=== PATIENT | female | born 1980 | race Caucasian/White ===

== ENCOUNTER 2017-01-28 19:15 | Emergency (ER) | payer OTHER ==
[~2017-01-28] VITALS: Ht 157.5 cm; Wt 90.3 kg
[~2017-01-28 19:15] MED LIST: ASPI325T PO; ATARAX PO; BACTRIM DS PO; BUSP5TA PO; COLA100C2 OR; DRIS50002 PO; FERR325T OR; GABA-279 PO; HYDR-4274 PO; IBUP800T OR; LEXA1TAB2 PO; MIRA3350 PO; MIRA33504 PO; NALT50TA4 PO; NICO14DI20 TD; NICO21PAT TD; OMEP40CA2 PO; PARO30TA70 PO; PAXI10TA2 PO; PERC5TAB6 PO; PERC5TAB8 OR; PRAZ2CAP PO; RANI150T PO; RANI15TA PO; TRAZ50TA4 PO; VICO5TAB16 PO; VITA200028 PO
[2017-01-28] MEDS ORDERED: LINZ290C PO (19:25)
[2017-01-28 21:42] VITALS: BP 122/72
--- NOTE | 2017-01-29 07:40 | REP ---
Clinical: Acute crush injury. Old trauma. Comparison: 10/24/2016. Technique: AP, lateral, bilateral oblique views of the left ankle. Findings: The the patient is status post open reduction and fixation for medial and lateral malleolar fractures stable compared to 10/24/2016. No new acute ankle fracture identified. Mortise appears intact. AP view cannot exclude injury to the first toe. Impression: Old stable medial and lateral malleolar fractures. No new ankle fracture. Cannot exclude injury to the first toe and correlation is recommended. Signed by Ferny Black MD 01/29/2017 07:32 A
== END 2017-01-28 21:45 | disposition home or self-care (01) ==
LOC: M ED 21:04
DX: S90.02XA Contusion of left ankle, initial encounter (principal); W23.1XXA Caught, crushed, jammed, or pinched between stationary objects, initial encounter; Y92.099 Unspecified place in other non-institutional residence as the place of occurrence of the external cause; Y93.89 Activity, other specified; Y99.9 Unspecified external cause status

== ENCOUNTER → 2017-02-21 | Outpatient (CLI) | payer OTHER ==
[~2017-02-21] MED LIST changes: +LINZ290C PO
[2017-02-21 09:59] LABS: ALBUMIN 3.4 GM/DL (3.2-5.2); ALKALINE PHOSPHATASE 82 U/L (45-117); ALT/SGPT 20 U/L (12-78); AST/SGOT 13 U/L (15-37); BILIRUBIN,DIRECT < 0.1 MG/DL (0.0-0.2); BILIRUBIN,TOTAL 0.2 MG/DL (0.2-1.0); TOTAL PROTEIN 6.8 GM/DL (6.4-8.2)
== END ==
LOC: M LAB 08:54
PROVIDERS: ATTEND Nurse Practitioner Family
DX: F32.89 Other specified depressive episodes (principal)

== ENCOUNTER → 2017-04-02 | Outpatient (CLI) | payer OTHER ==
[2017-04-02 15:11] LABS: ALBUMIN 3.2 GM/DL (3.2-5.2); ALBUMIN/GLOBULIN RATIO 0.94 (1.00-1.93); ALKALINE PHOSPHATASE 65 U/L (45-117); ALT/SGPT 19 U/L (12-78); AST/SGOT 12 U/L (15-37); BILIRUBIN,DIRECT < 0.1 MG/DL (0.0-0.2); BILIRUBIN,TOTAL 0.1 MG/DL (0.2-1.0); TOTAL PROTEIN 6.6 GM/DL (6.4-8.2)
== END ==
LOC: M LAB 13:22
PROVIDERS: ATTEND Nurse Practitioner Family
DX: Z51.81 Encounter for therapeutic drug level monitoring (principal)

== ENCOUNTER 2017-06-04 12:06 | Emergency (ER) | payer OTHER ==
[~2017-06-04] VITALS: Ht 157.5 cm; Wt 89.1 kg
[~2017-06-04 12:06] MED LIST changes: -HYDR-4274 PO; +HYDR50TA70 PO; +PARO30TA3 PO; -PARO30TA70 PO; +PAXI10TA12 PO; -PAXI10TA2 PO; +PERC5TAB12 PO; -PERC5TAB6 PO; +TRAZ50TA11 PO; -TRAZ50TA4 PO
[2017-06-04] MEDS ORDERED: TOPA1TAB PO (12:22)
[2017-06-04] MEDS ORDERED: EFFE150C PO (12:22)
[2017-06-04] MEDS ORDERED: KETOROLAC 30 MG/ML VIAL (J1885) IV ONE (13:30)
[2017-06-04 14:26] LABS: BASO % 0.7 % (0.0-1.0); EOS # 0.1 K/mm3 (0.0-0.50); EOS % 1.8 % (0.0-3.0); LARGE UNSTAINED CELL # 0.1 K/mm3 (0.0-0.4); LARGE UNSTAINED CELL % 1.5 % (0.0-4.0); LYMPH # 2.1 K/mm3 (1.5-4.5); LYMPH % 32.7 % (24.0-44.0); MEAN CORPUSCULAR HGB CONC 34.7 g/dl (32.0-36.5); MEAN CORPUSCULAR VOLUME 95.1 fl (80.0-96.0); MONO # 0.3 K/mm3 (0.0-0.8); MONO % 5.6 % (0.0-5.0); NEUTROPHILS # 3.5 K/mm3 (1.8-7.7); NEUTROPHILS % 57.7 % (36.0-66.0); PLATELET COUNT, AUTOMATED 243 k/mm3 (150-450); RED CELL DISTRIBUTION WIDTH 12.2 % (11.5-14.5)
[2017-06-04 14:27] LABS: ANION GAP 6 MEQ/L (8-16); BLOOD UREA NITROGEN 7 MG/DL (7-18); CALCIUM LEVEL 8.5 MG/DL (8.5-10.1); CARBON DIOXIDE LEVEL 24 MEQ/L (21-32); CHLORIDE LEVEL 105 MEQ/L (98-107); CREATININE FOR GFR 0.93 MG/DL (0.55-1.02); GLOMERULAR FILTRATION RATE > 60.0 (>60); GLUCOSE, FASTING 88 MG/DL (70-105); POTASSIUM SERUM 3.5 MEQ/L (3.5-5.1); SODIUM LEVEL 135 MEQ/L (136-145)
[2017-06-04] MEDS ORDERED: ISOVUE-370 76% 100ML VIAL (Q9967) As Ordered ONE (14:37)
[2017-06-04] MEDS ORDERED: GABAPENTIN 100 MG CAP PO ONE (15:00)
[2017-06-04] MEDS ORDERED: busPIRone 5 MG TAB PO ONE (15:00)
[2017-06-04 15:11] LABS: ERYTHROCYTE SEDIMENTATION RATE 25 mm/hr (0-20)
[2017-06-04] MEDS ORDERED: ACET30TAB PO (15:25)
[2017-06-04] MEDS ORDERED: CLEO300C2 PO (15:25)
--- NOTE | 2017-06-04 15:25 | REP ---
CT RIGHT THIGH AND FEMUR WITH IV CONTRAST: CT right thigh and femur performed with the intravenous administration of 100 mL of Isovue 370. Sagittal and coronal reconstruction images are performed. The right femur demonstrates no fracture or bone lesion. The soft tissues of the right thigh demonstrate mild skin thickening, but no underlying soft tissue mass or fluid collection. Within the visualized portions of the pelvis there is a cyst near the midline measuring approximately 4.5 cm in maximum diameter. IMPRESSION: No significant abnormality of the right femur or thigh soft tissues. No mass or fluid collection. There is a cyst in the pelvis 4.5 cm in maximum diameter. Recommend followup ultrasound in 1 to 2 months. Signed by Edward Galvez MD 06/04/2017 05:26 P
[2017-06-04 15:38] VITALS: BP 123/63
--- NOTE | 2017-06-05 18:48 | ED PDOC ---
Post-Departure Follow-Up radha pimentel faxed formal report of ct lower extrem for fu Trev Powell MD Jun 05, 2017 18:48
== END 2017-06-04 15:51 | disposition home or self-care (01) ==
LOC: M ED 12:06
DX: L03.115 Cellulitis of right lower limb (principal); N94.89 Other specified conditions associated with female genital organs and menstrual cycle; F32.9 Major depressive disorder, single episode, unspecified; F41.9 Anxiety disorder, unspecified; Z87.59 Personal history of other complications of pregnancy, childbirth and the puerperium; Z79.899 Other long term (current) drug therapy
CPT/HCPCS: 73701; 80048; 83605; 85025; 85652; 86140; 87040; 96374; 99283; J1885; Q9967

== ENCOUNTER → 2017-06-29 | Outpatient (CLI) | payer OTHER ==
[~2017-06-29] MED LIST changes: +ACET30TAB PO; +CLEO300C2 PO; +EFFE150C PO; +GABA-283 PO; +IBUP80TA PO; +Naltrexone; +ROBA500T PO; +TOPA1TAB PO
[2017-06-29 09:23] LABS: BASO % 0.8 % (0.0-1.0); EOS # 0.1 K/mm3 (0.0-0.50); EOS % 2.8 % (0.0-3.0); LARGE UNSTAINED CELL # 0.1 K/mm3 (0.0-0.4); LARGE UNSTAINED CELL % 1.9 % (0.0-4.0); LYMPH # 1.5 K/mm3 (1.5-4.5); LYMPH % 30.9 % (24.0-44.0); MEAN CORPUSCULAR HEMOGLOBIN 32.8 pg (27.0-33.0); MEAN CORPUSCULAR HGB CONC 34.9 g/dl (32.0-36.5); MEAN CORPUSCULAR VOLUME 94.1 fl (80.0-96.0); MONO # 0.3 K/mm3 (0.0-0.8); MONO % 6.8 % (0.0-5.0); NEUTROPHILS # 2.8 K/mm3 (1.8-7.7); NEUTROPHILS % 56.8 % (36.0-66.0); PLATELET COUNT, AUTOMATED 278 k/mm3 (150-450); RED CELL DISTRIBUTION WIDTH 12.1 % (11.5-14.5); WHITE BLOOD COUNT 4.8 K/mm3 (4.0-10.0)
[2017-06-29 09:57] LABS: ALBUMIN 3.6 GM/DL (3.2-5.2); ALBUMIN/GLOBULIN RATIO 1.06 (1.00-1.93); ALKALINE PHOSPHATASE 74 U/L (45-117); ALT/SGPT 15 U/L (12-78); ANION GAP 7 MEQ/L (8-16); AST/SGOT 10 U/L (15-37); BILIRUBIN,TOTAL 0.3 MG/DL (0.2-1.0); BLOOD UREA NITROGEN 10 MG/DL (7-18); CALCIUM LEVEL 9.2 MG/DL (8.5-10.1); CARBON DIOXIDE LEVEL 26 MEQ/L (21-32); CHLORIDE LEVEL 110 MEQ/L (98-107); CHOLESTEROL LEVEL 176 MG/DL (<200); CREATININE FOR GFR 1.05 MG/DL (0.55-1.02); GLOMERULAR FILTRATION RATE > 60.0 (>60); GLUCOSE, FASTING 78 MG/DL (70-105); POTASSIUM SERUM 4.2 MEQ/L (3.5-5.1); SODIUM LEVEL 143 MEQ/L (136-145); TRIGLYCERIDES LEVEL 112 MG/DL (<150)
== END ==
LOC: M LAB 08:33
PROVIDERS: ATTEND Nurse Practitioner Adult Health
DX: Z79.899 Other long term (current) drug therapy (principal)

== ENCOUNTER → 2017-07-05 | Outpatient (CLI) | payer OTHER ==
--- NOTE | 2017-07-05 15:44 | REP ---
RIGHT KNEE SERIES: Five views of the right knee are performed. I see no acute fracture or dislocation. I see no joint effusion. On the lateral view there is possible curvilinear defect in one of the femoral condyles, possibly representing an osteochondral defect. No other abnormalities are seen. IMPRESSION: Possible osteochondral defect involving one of the femoral condyles, only seen on the lateral view. This could be further evaluated with MRI. Signed by Edward Galvez MD 07/05/2017 03:51 P
== END ==
LOC: M RAD 15:12
PROVIDERS: ATTEND Nurse Practitioner Adult Health
DX: M25.561 Pain in right knee (principal)

== ENCOUNTER → 2017-07-06 | Outpatient (CLI) | payer OTHER ==
--- NOTE | 2017-07-06 13:50 | REP ---
DUPLEX EXTREMITY VENOUS ULTRASOUND: RIGHT LOWER EXTREMITY. HISTORY: Right thigh and knee pain, question DVT. FINDINGS: The deep veins are anechoic and fully compressible from the groin to the popliteal fossa in the right lower extremity. Color flow imaging is homogeneous. Spectral Doppler interrogation demonstrates intact respiratory variation in flow and normal manual augmentation of flow. There is no evidence of deep vein thrombosis. IMPRESSION: Negative right lower extremity duplex venous ultrasound. No evidence of deep vein thrombosis. Signed by Vincent Sandoval MD 07/06/2017 01:56 P
== END ==
LOC: M RAD 12:11
PROVIDERS: ATTEND Nurse Practitioner Adult Health
DX: M79.604 Pain in right leg (principal)

== ENCOUNTER → 2017-07-11 | Outpatient (REF) | payer OTHER | LOC: M LAB REF 16:10 | PROVIDERS: ATTEND Nurse Practitioner Adult Health | DX: Z00.00 Encounter for general adult medical examination without abnormal findings (principal); F10.21 Alcohol dependence, in remission ==

== ENCOUNTER 2017-07-12 08:39 | Emergency (ER) | payer OTHER ==
[~2017-07-12] VITALS: Ht 157.5 cm; Wt 95.0 kg
[~2017-07-12 08:39] MED LIST changes: -GABA-283 PO; -IBUP80TA PO; -Naltrexone; -ROBA500T PO
[2017-07-12] MEDS ORDERED: Naltrexone (09:00)
[2017-07-12] MEDS ORDERED: GABA-283 PO (09:00)
[2017-07-12] MEDS ORDERED: IBUP80TA PO (09:30)
[2017-07-12] MEDS ORDERED: METHOCARBAMOL 500 MG TAB PO ONE (09:30)
[2017-07-12] MEDS ORDERED: KETOROLAC 60 MG/2 ML VIAL (J1885) IM ONE (09:30)
[2017-07-12] MEDS ORDERED: ROBA500T PO (09:30)
[2017-07-12 09:49] VITALS: BP 126/65
== END 2017-07-12 10:20 | disposition home or self-care (01) ==
LOC: M ED 08:39
DX: G89.18 Other acute postprocedural pain (principal); M79.651 Pain in right thigh; K58.9 Irritable bowel syndrome, unspecified; F41.9 Anxiety disorder, unspecified; Z79.899 Other long term (current) drug therapy
CPT/HCPCS: 96372; 99282; J1885

== ENCOUNTER 2017-07-31 13:30 | Outpatient (RCR) | payer OTHER ==
[~2017-07-31 13:30] MED LIST changes: +GABA-283 PO; +IBUP80TA PO; +Naltrexone; +ROBA500T PO
== END 2017-08-11 | disposition home or self-care (01) ==
LOC: M PT 13:30
PROVIDERS: ATTEND Nurse Practitioner Adult Health
DX: Z51.89 Encounter for other specified aftercare (principal)

== ENCOUNTER 2018-03-06 17:58 | Emergency (ER) | payer OTHER ==
[2018-03-06 19:02] LABS: BASO # 0.1 10^3/uL (0.0-0.2); BASO % 1.1 % (0.0-1.0); EOS # 0.6 10^3/uL (0.0-0.50); EOS % 9.2 % (0.0-3.0); HEMATOCRIT 36.4 % (36.0-47.0); HEMOGLOBIN 12.1 g/dl (12.0-15.5); IMMATURE GRANULOCYTE % 0.2 % (0-3.0); LYMPH # 2.8 10^3/uL (1.5-4.5); LYMPH % 44.1 % (24.0-44.0); MEAN CORPUSCULAR HEMOGLOBIN 29.7 pg (27.0-33.0); MEAN CORPUSCULAR HGB CONC 33.2 g/dl (32.0-36.5); MEAN CORPUSCULAR VOLUME 89.2 fl (80.0-96.0); MONO # 0.6 10^3/uL (0.0-0.8); MONO % 10.1 % (0.0-5.0); NEUTROPHILS # 2.2 10^3/uL (1.8-7.7); NEUTROPHILS % 35.3 % (36.0-66.0); PLATELET COUNT, AUTOMATED 259 10^3/uL (150-450); RED BLOOD COUNT 4.08 10^6/uL (4.00-5.40); RED CELL DISTRIBUTION WIDTH 13.4 % (11.5-14.5); WHITE BLOOD COUNT 6.3 10^3/uL (4.0-10.0)
[2018-03-06 19:03] LABS: VENOUS BASE EXCESS -2.1 (-2.0-2.0); VENOUS HCO3 24.4 MEQ/L (23.0-27.0); VENOUS O2 SATURATION 87.9 % (60.0-80.0); VENOUS PARTIAL PRESSURE CO2 49.1 mmHg (38.0-50.0); VENOUS PH 7.315 UNITS (7.330-7.430); VENOUS STANDARD HCO3 22.6 MEQ/L
[2018-03-06 19:16] LABS: D-DIMER QUANT 500.4 ng/ml (<500)
[2018-03-06 19:25] LABS: ALBUMIN 3.2 GM/DL (3.2-5.2); ALKALINE PHOSPHATASE 76 U/L (45-117); ALT/SGPT 16 U/L (12-78); ANION GAP 3 MEQ/L (8-16); AST/SGOT 16 U/L (7-37); BILIRUBIN,DIRECT < 0.1 MG/DL (0.0-0.2); BILIRUBIN,TOTAL 0.3 MG/DL (0.2-1.0); BLOOD UREA NITROGEN 2 MG/DL (7-18); CALCIUM LEVEL 8.5 MG/DL (8.5-10.1); CARBON DIOXIDE LEVEL 28 MEQ/L (21-32); CHLORIDE LEVEL 111 MEQ/L (98-107); CPK CREATINE PHOSPHOKINASE 158 U/L (26-192); CREATININE FOR GFR 0.82 MG/DL (0.55-1.30); GLOMERULAR FILTRATION RATE > 60.0 (>60); GLUCOSE, FASTING 79 MG/DL (70-100); MB/CK RELATIVE INDEX 1.89 (< OR =4); NT-PRO BNP 59 PG/ML (<125); POTASSIUM SERUM 3.6 MEQ/L (3.5-5.1); SODIUM LEVEL 142 MEQ/L (136-145); TOTAL PROTEIN 7.2 GM/DL (6.4-8.2); TROPONIN I < 0.02 NG/ML (< 0.10)
[2018-03-06 19:37] LABS: APPEARANCE, URINE CLEAR (CLEAR); BACTERIA, URINE AUTO NEGATIVE (NEGATIVE); BILIRUBIN, URINE AUTO NEGATIVE (NEGATIVE); BLOOD, URINE BLOOD NEGATIVE (NEGATIVE); COLOR, URINE STRAW (YELLOW); GLUCOSE, URINE (UA) AUTO NEGATIVE (NEGATIVE); KETONE, URINE AUTO NEGATIVE (NEGATIVE); LEUKOCYTE ESTERASE, URINE AUTO NEGATIVE (NEGATIVE); NITRITE, URINE AUTO NEGATIVE (NEGATIVE); PROTEIN, URINE AUTO NEGATIVE (NEGATIVE); RBC, URINE AUTO 1 /HPF (0-3); SPECIFIC GRAVITY URINE AUTO 1.002 (1.002-1.035); SQUAMOUS EPITHELIAL CELL UR AU 0 /HPF (0-6); UROBILINOGEN, URINE AUTO 0.2 mg/dL (0.0-2.0); WBC, URINE AUTO 0 /HPF (0-3)
[2018-03-06] MEDS: ACETAMINOPHEN TAB 650MG DOSE (2X325MG) PO (19:58)
[2018-03-06 22:51] LABS: CPK CREATINE PHOSPHOKINASE 129 U/L (26-192); TROPONIN I < 0.02 NG/ML (< 0.10)
[2018-03-06 22:52] LABS: CK-MB VALUE MASS 2.2 NG/ML (<3.6)
== END 2018-03-06 23:57 | disposition home or self-care (01) ==
LOC: M ED 17:58
DX: R60.9 Edema, unspecified (principal); R07.89 Other chest pain; G89.29 Other chronic pain; M54.9 Dorsalgia, unspecified; Z86.718 Personal history of other venous thrombosis and embolism; F17.200 Nicotine dependence, unspecified, uncomplicated; F10.21 Alcohol dependence, in remission; F15.21 Other stimulant dependence, in remission; Z79.899 Other long term (current) drug therapy
CPT/HCPCS: 71046

== ENCOUNTER → 2018-04-17 | Outpatient (CLI) | payer OTHER ==
[~2018-04-17] MED LIST changes: -ACET30TAB PO; -ASPI325T PO; -ATARAX PO; -BACTRIM DS PO; -BUSP5TA PO; -CLEO300C2 PO; -COLA100C2 OR; -DRIS50002 PO; -EFFE150C PO; -FERR325T OR; -GABA-279 PO; -GABA-283 PO; +GASTROGRAFIN SOLUTION 30ML (Q9963) As Ordered; -HYDR50TA70 PO; -IBUP800T OR; -IBUP80TA PO; +ISOVUE-370 76% 100ML VIAL (Q9967) As Ordered; -LEXA1TAB2 PO; -LINZ290C PO; -MIRA3350 PO; -MIRA33504 PO; -NALT50TA4 PO; -NICO14DI20 TD; -NICO21PAT TD; -Naltrexone; -OMEP40CA2 PO; -PARO30TA3 PO; -PAXI10TA12 PO; -PERC5TAB12 PO; -PERC5TAB8 OR; -PRAZ2CAP PO; -RANI150T PO; -RANI15TA PO; -ROBA500T PO; -TOPA1TAB PO; -TRAZ50TA11 PO; -VICO5TAB16 PO; -VITA200028 PO
== END ==
LOC: M RAD 12:39
DX: R10.9 Unspecified abdominal pain (principal); R11.0 Nausea; Z90.710 Acquired absence of both cervix and uterus
CPT/HCPCS: Q9963

== ENCOUNTER → 2018-04-25 | Outpatient (CLI) | payer OTHER ==
[2018-04-25 19:03] LABS: BASO # 0.1 10^3/uL (0.0-0.2); BASO % 0.9 % (0.0-1.0); EOS # 0.4 10^3/uL (0.0-0.50); HEMATOCRIT 34.4 % (36.0-47.0); LYMPH # 3.1 10^3/uL (1.5-4.5); LYMPH % 53.6 % (24.0-44.0); MEAN CORPUSCULAR HEMOGLOBIN 29.6 pg (27.0-33.0); MEAN CORPUSCULAR HGB CONC 34.9 g/dl (32.0-36.5); MEAN CORPUSCULAR VOLUME 84.9 fl (80.0-96.0); MONO # 0.7 10^3/uL (0.0-0.8); MONO % 12.2 % (0.0-5.0); NEUTROPHILS # 1.6 10^3/uL (1.8-7.7); NEUTROPHILS % 27.3 % (36.0-66.0); PLATELET COUNT, AUTOMATED 232 10^3/uL (150-450); RED BLOOD COUNT 4.05 10^6/uL (4.00-5.40); RED CELL DISTRIBUTION WIDTH 13.2 % (11.5-14.5); WHITE BLOOD COUNT 5.8 10^3/uL (4.0-10.0)
[2018-04-25 19:33] LABS: ALBUMIN 3.7 GM/DL (3.2-5.2); ALBUMIN/GLOBULIN RATIO 1.32 (1.00-1.93); ALKALINE PHOSPHATASE 66 U/L (45-117); ALT/SGPT 18 U/L (12-78); ANION GAP 7 MEQ/L (8-16); AST/SGOT 19 U/L (7-37); BILIRUBIN,TOTAL 0.2 MG/DL (0.2-1.0); BLOOD UREA NITROGEN 3 MG/DL (7-18); CALCIUM LEVEL 8.4 MG/DL (8.5-10.1); CARBON DIOXIDE LEVEL 29 MEQ/L (21-32); CHLORIDE LEVEL 100 MEQ/L (98-107); CHOLESTEROL LEVEL 178 MG/DL (<200); CREATININE FOR GFR 0.75 MG/DL (0.55-1.30); FOLATE 4.6 NG/ML (>5.4); FREE T4 0.77 NG/DL (0.76-1.46); GLOMERULAR FILTRATION RATE > 60.0 (>60); GLUCOSE, FASTING 70 MG/DL (70-100); HDL CHOLESTEROL 20 MG/DL (>40); NON-HDL-C 158 MG/DL; POTASSIUM SERUM 3.4 MEQ/L (3.5-5.1); SODIUM LEVEL 136 MEQ/L (136-145); TOTAL PROTEIN 6.5 GM/DL (6.4-8.2); TRIGLYCERIDES LEVEL 340 MG/DL (<150); VITAMIN B12 LEVEL 209 PG/ML (247-911)
[2018-04-26 12:21] LABS: HEPATITIS C VIRUS ABY INDEX < 0.0 INDEX (<0.8)
[2018-04-26 12:22] LABS: HIV 1&2 SCREEN CENTAUR NEGATIVE (NEGATIVE)
== END ==
LOC: M LAB 18:16
DX: F32.9 Major depressive disorder, single episode, unspecified (principal); R20.2 Paresthesia of skin; Z11.59 Encounter for screening for other viral diseases; Z11.4 Encounter for screening for human immunodeficiency virus [HIV]; Z13.220 Encounter for screening for lipoid disorders
CPT/HCPCS: 82746

== ENCOUNTER → 2018-04-26 | Outpatient (CLI) | payer OTHER ==
[~2018-04-26] MED LIST changes: -GASTROGRAFIN SOLUTION 30ML (Q9963) As Ordered; -ISOVUE-370 76% 100ML VIAL (Q9967) As Ordered; +PROHANCE 279.3MG/ML 15ML VIAL (A9576) As Ordered; +PROHANCE 279.3MG/ML 5ML VIAL (A9576) As Ordered
== END ==
LOC: M RAD 12:32
DX: R42 Dizziness and giddiness (principal); H53.8 Other visual disturbances; R56.1 Post traumatic seizures
CPT/HCPCS: A9576

== ENCOUNTER → 2018-05-07 | Outpatient (REF) | payer OTHER ==
[2018-05-07 12:08] LABS: INR 1.01; PROTHROMBIN TIME 13.4 SECONDS (12.4-14.5)
[2018-05-07 12:09] LABS: PARTIAL THROMBOPLASTIN TIME 32.1 SECONDS (26.8-37.9)
[2018-05-07 12:15] LABS: ANION GAP 7 MEQ/L (8-16); BLOOD UREA NITROGEN 5 MG/DL (7-18); CALCIUM LEVEL 8.8 MG/DL (8.5-10.1); CARBON DIOXIDE LEVEL 27 MEQ/L (21-32); CHLORIDE LEVEL 111 MEQ/L (98-107); CREATININE FOR GFR 0.88 MG/DL (0.55-1.30); GLOMERULAR FILTRATION RATE > 60.0 (>60); GLUCOSE, FASTING 87 MG/DL (70-100); POTASSIUM SERUM 3.7 MEQ/L (3.5-5.1); SODIUM LEVEL 145 MEQ/L (136-145)
[2018-05-13 14:55] LABS: CARDIOLIPIN IGA ANTIBODY <9 APL U/mL (0-11); CARDIOLIPIN IGG ANTIBODY <9 GPL U/mL (0-14); CARDIOLIPIN IGM ANTIBODY 9 MPL U/mL (0-12); FACTOR V 92 % (70-150); HOMOCYST(E)INE SERUM 15.5 umol/L (0.0-15.0); PROTEIN C FUNCTIONAL ACTIVITY 107 % (73-180); PROTEIN C RESISTANCE ACTIVATED 2.9 ratio (2.2-3.5); PROTEIN S FUNCTIONAL ACTIVITY 89 % (63-140)
[2018-05-13 14:55] LABS: ANTI THROMBIN 3 FUNCT ACTIVITY 111 % (75-135)
== END ==
LOC: M SFHCPLAZ 09:33
DX: Z86.718 Personal history of other venous thrombosis and embolism (principal); E87.6 Hypokalemia
CPT/HCPCS: 86147

== ENCOUNTER → 2018-05-13 | Outpatient (CLI) | payer OTHER | LOC: M RAD 14:30 | DX: M54.5 Low back pain (principal) | CPT/HCPCS: 72110 ==

== ENCOUNTER → 2018-08-05 | Outpatient (REF) | payer OTHER ==
[2018-08-05 12:53] LABS: BASO # 0.1 10^3/uL (0.0-0.2); BASO % 0.8 % (0.0-1.0); EOS # 0.3 10^3/uL (0.0-0.50); EOS % 3.8 % (0.0-3.0); HEMATOCRIT 41.8 % (36.0-47.0); HEMOGLOBIN 14.2 g/dl (12.0-15.5); IMMATURE GRANULOCYTE % 0.3 % (0-3.0); LYMPH % 40.7 % (24.0-44.0); MEAN CORPUSCULAR HEMOGLOBIN 29.5 pg (27.0-33.0); MEAN CORPUSCULAR VOLUME 86.7 fl (80.0-96.0); MONO # 0.7 10^3/uL (0.0-0.8); MONO % 9.7 % (0.0-5.0); NEUTROPHILS # 3.3 10^3/uL (1.8-7.7); NEUTROPHILS % 44.7 % (36.0-66.0); PLATELET COUNT, AUTOMATED 320 10^3/uL (150-450); RED BLOOD COUNT 4.82 10^6/uL (4.00-5.40); RED CELL DISTRIBUTION WIDTH 12.8 % (11.5-14.5); WHITE BLOOD COUNT 7.3 10^3/uL (4.0-10.0)
[2018-08-05 13:34] LABS: ALBUMIN 3.7 GM/DL (3.2-5.2); ALBUMIN/GLOBULIN RATIO 0.93 (1.00-1.93); ALKALINE PHOSPHATASE 90 U/L (45-117); ALT/SGPT 18 U/L (12-78); ANION GAP 10 MEQ/L (8-16); AST/SGOT 14 U/L (7-37); BILIRUBIN,TOTAL 0.4 MG/DL (0.2-1.0); BLOOD UREA NITROGEN 8 MG/DL (7-18); CALCIUM LEVEL 8.9 MG/DL (8.5-10.1); CARBON DIOXIDE LEVEL 26 MEQ/L (21-32); CHLORIDE LEVEL 103 MEQ/L (98-107); CHOLESTEROL LEVEL 225 MG/DL (<200); CHOLESTEROL RISK RATIO 8.653 (<5); CREATININE FOR GFR 0.87 MG/DL (0.55-1.30); GLOMERULAR FILTRATION RATE > 60.0 (>60); GLUCOSE, FASTING 76 MG/DL (70-100); HDL CHOLESTEROL 26 MG/DL (>40); LDL CHOLESTEROL 165 MG/DL (<100); NON-HDL-C 199 MG/DL; POTASSIUM SERUM 4.1 MEQ/L (3.5-5.1); SODIUM LEVEL 139 MEQ/L (136-145); TOTAL PROTEIN 7.7 GM/DL (6.4-8.2); TRIGLYCERIDES LEVEL 169 MG/DL (<150)
[2018-08-05 13:57] LABS: FOLATE > 24.0 NG/ML (>5.4)
== END ==
LOC: M SFHCPLAZ 08:54
DX: E53.8 Deficiency of other specified B group vitamins (principal); E78.5 Hyperlipidemia, unspecified

== ENCOUNTER → 2018-11-21 | Outpatient (REF) | payer OTHER ==
[~2018-11-21] MED LIST changes: +ACET30TAB PO; +ASPI325T PO; +ATARAX PO; +BACTRIM DS PO; +BUSP5TA PO; +CLEO300C2 PO; +COLA100C2 OR; +DRIS50003 PO; +EFFE150C2 PO; +FERR325T OR; +GABA-1171 PO; +GABA-845 PO; +HYDR50TA70 PO; +IBUP-1022 PO; +IBUP800T OR; +IBUP80TA PO; +LEXA1TAB2 PO; +LINZ290C PO; +MIRA3350 PO; +MIRA33504 PO; +NALT50TA4 PO; +NICO14DI20 TD; +NICO21PAT TD; +Naltrexone; +OMEP40CA2 PO; +PARO30TA3 PO; +PAXI10TA12 PO; +PERC5TAB12 PO; +PERC5TAB8 OR; +PRAZ2CAP PO; -PROHANCE 279.3MG/ML 15ML VIAL (A9576) As Ordered; -PROHANCE 279.3MG/ML 5ML VIAL (A9576) As Ordered; +RANI150T PO; +RANI15TA PO; +ROBA500T PO; +TOPA1TAB PO; +TRAZ-160 PO; +VICO5TAB16 PO; +VITA200028 PO
[2018-11-21 18:10] LABS: ALBUMIN 3.4 GM/DL (3.2-5.2); ALT/SGPT 19 U/L (12-78); BILIRUBIN,TOTAL 0.1 MG/DL (0.2-1.0); BLOOD UREA NITROGEN 7 MG/DL (7-18); CALCIUM LEVEL 9.1 MG/DL (8.5-10.1); CARBON DIOXIDE LEVEL 30 MEQ/L (21-32); CHLORIDE LEVEL 104 MEQ/L (98-107); CHOLESTEROL LEVEL 222 MG/DL (<200); CHOLESTEROL RISK RATIO 10.571 (<5); CREATININE FOR GFR 0.81 MG/DL (0.55-1.30); GLOMERULAR FILTRATION RATE > 60.0 (>60); GLUCOSE, FASTING 100 MG/DL (70-100); HDL CHOLESTEROL 21 MG/DL (>40); NON-HDL-C 201 MG/DL; POTASSIUM SERUM 4.3 MEQ/L (3.5-5.1); SODIUM LEVEL 141 MEQ/L (136-145); TOTAL PROTEIN 7.2 GM/DL (6.4-8.2); TRIGLYCERIDES LEVEL 418 MG/DL (<150)
== END ==
LOC: M SFHCPLAZ 15:46
PROVIDERS: ATTEND Physician Assistant
DX: E78.49 Other hyperlipidemia (principal)

== ENCOUNTER → 2019-01-29 | Outpatient (REF) | payer OTHER, MEDICAID ==
[2019-01-29 19:28] LABS: BASO # 0.1 10^3/uL (0.0-0.2); BASO % 0.8 % (0.0-1.0); EOS # 0.3 10^3/uL (0.0-0.50); EOS % 3.6 % (0.0-3.0); HEMATOCRIT 37.2 % (36.0-47.0); HEMOGLOBIN 12.4 g/dl (12.0-15.5); LYMPH # 3.3 10^3/uL (1.5-4.5); LYMPH % 37.9 % (24.0-44.0); MEAN CORPUSCULAR HEMOGLOBIN 28.7 pg (27.0-33.0); MEAN CORPUSCULAR HGB CONC 33.3 g/dl (32.0-36.5); MEAN CORPUSCULAR VOLUME 86.1 fl (80.0-96.0); MONO # 0.8 10^3/uL (0.0-0.8); MONO % 9.5 % (0.0-5.0); NEUTROPHILS # 4.2 10^3/uL (1.8-7.7); PLATELET COUNT, AUTOMATED 348 10^3/uL (150-450); RED BLOOD COUNT 4.32 10^6/uL (4.00-5.40); WHITE BLOOD COUNT 8.8 10^3/uL (4.0-10.0)
[2019-01-29 19:49] LABS: ERYTHROCYTE SEDIMENTATION RATE 45 mm/hr (0-20)
[2019-01-29 19:51] LABS: ALBUMIN 3.5 GM/DL (3.2-5.2); ALT/SGPT 23 U/L (12-78); BILIRUBIN,TOTAL 0.2 MG/DL (0.2-1.0); BLOOD UREA NITROGEN 6 MG/DL (7-18); C REACTIVE PROTEIN QUANTITATIV 0.56 MG/DL (0.00-0.30); CALCIUM LEVEL 8.6 MG/DL (8.5-10.1); CARBON DIOXIDE LEVEL 29 MEQ/L (21-32); CHLORIDE LEVEL 106 MEQ/L (98-107); CREATININE FOR GFR 0.84 MG/DL (0.55-1.30); GLOMERULAR FILTRATION RATE > 60.0 (>60); GLUCOSE, FASTING 75 MG/DL (70-100); POTASSIUM SERUM 3.7 MEQ/L (3.5-5.1); SODIUM LEVEL 140 MEQ/L (136-145); TOTAL PROTEIN 7.1 GM/DL (6.4-8.2)
== END ==
LOC: M LAB REF 18:48
PROVIDERS: ATTEND Family Medicine Addiction Medicine
DX: R22.33 Localized swelling, mass and lump, upper limb, bilateral (principal)

== ENCOUNTER → 2019-03-27 | Outpatient (CLI) | payer OTHER ==
[~2019-03-27] MED LIST changes: +ACET-716 PO; -ACET30TAB PO; +ASPI-1 PO; -ASPI325T PO; -VICO5TAB16 PO; +VICO5TAB17 PO
--- NOTE | 2019-03-28 15:43 | REP ---
Clinical: Pain and disability. Comparison: 05/13/2018 Technique: AP, lateral, coned-down views of the lumbar spine. Findings: Three views of the lumbosacral spine demonstrate satisfactory alignment and lordosis without acute fracture / compression injury or subluxation. Very minimal age-related changes are appreciated. Impression: Mild generalized age-related changes. No acute fracture / compression injury or subluxation. Electronically Signed by Ferny Black MD 03/28/2019 03:35 P
== END ==
LOC: M RAD 10:38
PROVIDERS: ATTEND Family Medicine Addiction Medicine
DX: M54.5 Low back pain (principal)

== ENCOUNTER → 2019-03-27 | Outpatient (CLI) | payer OTHER ==
--- NOTE | 2019-03-28 16:48 | REP ---
Clinical: Rule out venous insufficiency . Technique: Galvez scale and color Doppler evaluation using linear high frequency transducer with reflux evaluation . Findings: Ultrasound examination of the right and left lower extremity deep venous structures from the common femoral vein to the popliteal vein demonstrates normal compressibility flow and wave patterns in response to respiration and augmentation. There is no evidence for deep venous thrombosis. Reflux evaluation demonstrates no reflux through either deep or superficial system bilaterally. Impression: No evidence for deep venous thrombosis. No evidence for reflux. Electronically Signed by Ferny Black MD 03/28/2019 04:40 P
== END ==
LOC: M RAD 10:34
PROVIDERS: ATTEND Surgery Vascular Surgery
DX: R22.43 Localized swelling, mass and lump, lower limb, bilateral (principal)

== ENCOUNTER → 2019-06-27 | Outpatient (REF) | payer OTHER ==
[~2019-06-27] MED LIST changes: -OMEP40CA2 PO; +OMEP40CA97 PO; -TRAZ-160 PO; +TRAZ-252 PO
[2019-06-27 18:36] LABS: BASO # 0.1 10^3/uL (0.0-0.2); BASO % 0.6 % (0.0-1.0); EOS # 0.2 10^3/uL (0.0-0.50); EOS % 1.8 % (0.0-3.0); HEMATOCRIT 40.1 % (36.0-47.0); HEMOGLOBIN 13.1 g/dl (12.0-15.5); LYMPH # 3.1 10^3/uL (1.5-4.5); LYMPH % 27.7 % (24.0-44.0); MEAN CORPUSCULAR HEMOGLOBIN 27.7 pg (27.0-33.0); MEAN CORPUSCULAR HGB CONC 32.7 g/dl (32.0-36.5); MEAN CORPUSCULAR VOLUME 84.8 fl (80.0-96.0); MONO # 0.8 10^3/uL (0.0-0.8); MONO % 7.6 % (0.0-5.0); NEUTROPHILS # 6.8 10^3/uL (1.8-7.7); NEUTROPHILS % 61.9 % (36.0-66.0); PLATELET COUNT, AUTOMATED 375 10^3/uL (150-450); RED BLOOD COUNT 4.73 10^6/uL (4.00-5.40)
[2019-06-27 18:46] LABS: ALBUMIN 3.3 GM/DL (3.2-5.2); ALT/SGPT 20 U/L (12-78); BILIRUBIN,TOTAL 0.2 MG/DL (0.2-1.0); BLOOD UREA NITROGEN 6 MG/DL (7-18); C REACTIVE PROTEIN QUANTITATIV 0.95 MG/DL (0.00-0.30); CARBON DIOXIDE LEVEL 27 MEQ/L (21-32); CHLORIDE LEVEL 105 MEQ/L (98-107); CHOLESTEROL LEVEL 199 MG/DL (<200); CHOLESTEROL RISK RATIO 5.685 (<5); CREATININE FOR GFR 0.82 MG/DL (0.55-1.30); GLOMERULAR FILTRATION RATE > 60.0 (>60); GLUCOSE, FASTING 103 MG/DL (70-100); HDL CHOLESTEROL 35 MG/DL (>40); LDL CHOLESTEROL 140 MG/DL (<100); NON-HDL-C 164 MG/DL; SODIUM LEVEL 138 MEQ/L (136-145); TOTAL PROTEIN 7.4 GM/DL (6.4-8.2); TRIGLYCERIDES LEVEL 118 MG/DL (<150)
[2019-06-27 19:14] LABS: ERYTHROCYTE SEDIMENTATION RATE 33 mm/hr (0-20)
== END ==
LOC: M LAB REF 17:59
PROVIDERS: ATTEND Nurse Practitioner Family
DX: M34.89 Other systemic sclerosis (principal); M54.5 Low back pain

== ENCOUNTER → 2019-07-03 | Outpatient (CLI) | payer OTHER ==
[~2019-07-03] MED LIST changes: +OMEP40CA2 PO; -OMEP40CA97 PO
--- NOTE | 2019-07-03 16:27 | REP ---
HISTORY: Pain bilateral hands. FINDINGS: The joint spaces are symmetric and relatively well maintained. There is no evidence of acute fracture or destructive osseous lesion. IMPRESSION: Negative bilateral hands. Electronically Signed by Nate Hebert DO 07/03/2019 04:30 P
[2019-07-03 20:46] LABS: BASO # 0.1 10^3/uL (0.0-0.2); EOS # 0.3 10^3/uL (0.0-0.50); EOS % 3.1 % (0.0-3.0); HEMATOCRIT 39.4 % (36.0-47.0); HEMOGLOBIN 12.8 g/dl (12.0-15.5); LYMPH # 3.2 10^3/uL (1.5-4.5); MEAN CORPUSCULAR HEMOGLOBIN 28.6 pg (27.0-33.0); MEAN CORPUSCULAR HGB CONC 32.5 g/dl (32.0-36.5); MEAN CORPUSCULAR VOLUME 88.1 fl (80.0-96.0); MONO # 0.6 10^3/uL (0.0-0.8); MONO % 6.6 % (0.0-5.0); NEUTROPHILS # 4.9 10^3/uL (1.8-7.7); PLATELET COUNT, AUTOMATED 324 10^3/uL (150-450); RED BLOOD COUNT 4.47 10^6/uL (4.00-5.40); WHITE BLOOD COUNT 9.1 10^3/uL (4.0-10.0)
[2019-07-03 21:13] LABS: FOLATE 19.3 NG/ML
== END ==
LOC: M ADAMS 14:21
PROVIDERS: ATTEND Nurse Practitioner Family
DX: M25.50 Pain in unspecified joint (principal); R20.2 Paresthesia of skin; Z00.01 Encounter for general adult medical examination with abnormal findings

== ENCOUNTER → 2019-07-03 | Outpatient (REF) | payer OTHER | LOC: M SFHCADAM 14:29 | PROVIDERS: ATTEND Internal Medicine Rheumatology | DX: M25.50 Pain in unspecified joint (principal) ==

== ENCOUNTER → 2020-07-07 | Outpatient (CLI) | payer OTHER ==
[~2020-07-07] MED LIST changes: -OMEP40CA2 PO; +OMEP40CA97 PO
--- NOTE | 2020-08-09 16:24 | REP ---
DIGITAL DIAGNOSTIC BILATERAL MAMMOGRAPHY WITH CAD, 3D TOMOGRAPHY, AND FOCUSED RIGHT BREAST SONOGRAPHY HISTORY: Bilateral breast pain, particularly upper outer quadrant on the right. Pain x4 years. Positive family history of breast carcinoma. COMPARISON: No comparison breast imaging. FINDINGS: Routine views of each breast are augmented by magnified focal spot compression and true medial lateral views of the right breast. Scattered fibroglandular elements are seen. The Volpara density pattern is B. There is a benign intramammary lymph node in the upper outer quadrant on the right. There is an asymmetric density at approximately 11 o'clock on the right seen on the craniocaudad view. Magnified focal spot compression and true mediolateral views demonstrate that this area compresses away to normal stromal elements. No suspicious mammographic abnormality is seen on either side. SONOGRAPHIC FINDINGS: The right upper outer quadrant was scanned sonographically. At 10 o'clock, there is a normal appearing 1.1 cm lymph node. This is felt to correspond with the lymph node seen mammographically and it has a benign appearance. At 11 o'clock, there is a 0.7 cm cyst. At the 12 o'clock position, there is a 0.9 cm simple cyst. No suspicious sonographic abnormality. IMPRESSION: BI-RADS Category 2 benign findings. Clinical follow-up is advised. Repeat screening mammography recommended in one year. BIRADS 2: BI-RADS/ACR category 2 mammogram. Benign findings. This study was interpreted with the aid of an FDA approved computer-assisted detection device. The [facility] lifetime breast cancer risk assessment is 10.3%. Patient letter M2. ZULEIKA
== END ==
LOC: M WHC 14:20
PROVIDERS: ATTEND Nurse Practitioner Family
DX: N60.01 Solitary cyst of right breast (principal); N64.4 Mastodynia
CPT/HCPCS: 76642; 77066; G0279

== ENCOUNTER → 2020-10-27 | Outpatient (REF) | payer OTHER ==
[2020-10-27 17:30] LABS: ALBUMIN 3.3 GM/DL (3.2-5.2); ALT/SGPT 20 U/L (12-78); BILIRUBIN,TOTAL 0.1 MG/DL (0.2-1.0); BLOOD UREA NITROGEN 4 MG/DL (7-18); CALCIUM LEVEL 9.1 MG/DL (8.5-10.1); CARBON DIOXIDE LEVEL 31 MEQ/L (21-32); CHLORIDE LEVEL 107 MEQ/L (98-107); CHOLESTEROL LEVEL 260 MG/DL (<200); CREATININE FOR GFR 0.89 MG/DL (0.55-1.30); GLOMERULAR FILTRATION RATE > 60.0 (>60); GLUCOSE, FASTING 88 MG/DL (70-100); HDL CHOLESTEROL 20 MG/DL (>40); LDL CHOLESTEROL 164 MG/DL (<100); NON-HDL-C 240 MG/DL; POTASSIUM SERUM 3.9 MEQ/L (3.5-5.1); SODIUM LEVEL 140 MEQ/L (136-145); TRIGLYCERIDES LEVEL 378 MG/DL (<150)
== END ==
LOC: M LAB REF 16:16
PROVIDERS: ATTEND Family Medicine Addiction Medicine
DX: E66.9 Obesity, unspecified (principal)

== ENCOUNTER → 2021-02-04 | Outpatient (REF) | payer OTHER ==
[2021-02-04 17:33] LABS: ALBUMIN 3.7 GM/DL (3.2-5.2); ALT/SGPT 20 U/L (12-78); BILIRUBIN,TOTAL 0.2 MG/DL (0.2-1.0); BLOOD UREA NITROGEN 10 MG/DL (7-18); CALCIUM LEVEL 9.1 MG/DL (8.5-10.1); CARBON DIOXIDE LEVEL 27 MEQ/L (21-32); CHLORIDE LEVEL 101 MEQ/L (98-107); CHOLESTEROL LEVEL 261 MG/DL (<200); CHOLESTEROL RISK RATIO 9.321 (<5); CREATININE FOR GFR 0.83 MG/DL (0.55-1.30); GLOMERULAR FILTRATION RATE > 60.0 (>60); GLUCOSE, FASTING 113 MG/DL (70-100); HDL CHOLESTEROL 28 MG/DL (>40); LDL CHOLESTEROL 190 MG/DL (<100); NON-HDL-C 233 MG/DL; POTASSIUM SERUM 4.4 MEQ/L (3.5-5.1); SODIUM LEVEL 136 MEQ/L (136-145); TOTAL 25(OH) VITAMIN D 15.4 NG/ML (30.0-100.0); TOTAL PROTEIN 7.7 GM/DL (6.4-8.2); TRIGLYCERIDES LEVEL 214 MG/DL (<150)
== END ==
LOC: M LAB REF 16:33
PROVIDERS: ATTEND Family Medicine Addiction Medicine
DX: E55.9 Vitamin D deficiency, unspecified (principal); E78.2 Mixed hyperlipidemia

== ENCOUNTER → 2021-02-28 | Outpatient (REF) | payer OTHER | LOC: M LAB REF 16:29 | PROVIDERS: ATTEND Family Medicine Addiction Medicine | DX: M54.5 Low back pain (principal) ==

== ENCOUNTER → 2021-07-19 | Outpatient (REF) | payer OTHER ==
[~2021-07-19] MED LIST changes: +GABA-283 PO; -GABA-845 PO; +OMEP40CA4 PO; -OMEP40CA97 PO
[2021-07-19 17:36] LABS: BASO # 0.1 10^3/uL (0.0-0.2); BASO % 0.7 % (0.0-1.0); EOS # 0.1 10^3/uL (0.0-0.5); EOS % 1.5 % (0.0-3.0); HEMATOCRIT 42.2 % (36.0-47.0); HEMOGLOBIN 13.5 g/dl (12.0-15.5); LYMPH # 2.9 10^3/uL (1.5-5.0); LYMPH % 32.1 % (24.0-44.0); MEAN CORPUSCULAR HEMOGLOBIN 26.6 pg (27.0-33.0); MEAN CORPUSCULAR VOLUME 83.1 fl (80.0-96.0); MONO # 0.8 10^3/uL (0.0-0.8); NEUTROPHILS % 56.4 % (36.0-66.0); PLATELET COUNT, AUTOMATED 398 10^3/uL (150-450); RED BLOOD COUNT 5.08 10^6/uL (4.00-5.40); WHITE BLOOD COUNT 8.9 10^3/uL (4.0-10.0)
[2021-07-19 17:46] LABS: APPEARANCE, URINE CLEAR (CLEAR); BACTERIA, URINE AUTO NEGATIVE (NEGATIVE); BILIRUBIN, URINE AUTO 1+ (NEGATIVE); BLOOD, URINE BLOOD NEGATIVE (NEGATIVE); COLOR, URINE AMBER (YELLOW); GLUCOSE, URINE (UA) AUTO NEGATIVE (NEGATIVE); KETONE, URINE AUTO NEGATIVE (NEGATIVE); LEUKOCYTE ESTERASE, URINE AUTO NEGATIVE (NEGATIVE); MUCUS, URINE MODERATE (NEGATIVE); NITRITE, URINE AUTO NEGATIVE (NEGATIVE); PROTEIN, URINE AUTO 1+ mg/dL (NEGATIVE); RBC, URINE AUTO 1 /HPF (0-3); SPECIFIC GRAVITY URINE AUTO 1.021 (1.002-1.035); SQUAMOUS EPITHELIAL CELL UR AU 4 /HPF (0-6); WBC, URINE AUTO 2 /HPF (0-3)
[2021-07-19 17:55] LABS: ALBUMIN 3.4 GM/DL (3.2-5.2); ALT/SGPT 23 U/L (12-78); BILIRUBIN,TOTAL 0.4 MG/DL (0.2-1.0); BLOOD UREA NITROGEN 6 MG/DL (7-18); CARBON DIOXIDE LEVEL 27 MEQ/L (21-32); CHLORIDE LEVEL 106 MEQ/L (98-107); CPK CREATINE PHOSPHOKINASE 236 U/L (26-192); CREATININE FOR GFR 0.83 MG/DL (0.55-1.30); GLOMERULAR FILTRATION RATE > 60.0 (>58); GLUCOSE, FASTING 80 MG/DL (70-100); LDH LACTATE DEHYDROGENASE 183 U/L (84-246); POTASSIUM SERUM 3.9 MEQ/L (3.5-5.1); SODIUM LEVEL 138 MEQ/L (136-145); TOTAL PROTEIN 7.1 GM/DL (6.4-8.2)
[2021-07-19 18:03] LABS: TOTAL PROTEIN,RANDOM URINE 15.4 MG/DL (0.0-12.0)
[2021-07-19 20:58] LABS: ERYTHROCYTE SEDIMENTATION RATE 27 mm/hr (0-20)
== END ==
LOC: M SFHCRHEU 14:40
PROVIDERS: ATTEND Internal Medicine Rheumatology
DX: M35.3 Polymyalgia rheumatica (principal); R60.9 Edema, unspecified

== ENCOUNTER → 2021-08-01 | Outpatient (CLI) | payer OTHER ==
--- NOTE | 2021-08-02 08:54 | REPMRS ---
Patient History The patient states she has not had a clinical breast exam in over a year. Family history of colorectal cancer in paternal uncle. Took hormonal contraceptives for 10 years. No breast complaints. 20 lb weight loss. covid vaccines 04/2021 left arm. 05/30/2021 left arm. Patient states no breast complaints today. Patient has signed MRS History Sheet. Digital Woman Screen Mammo: August 01, 2021 - Exam #: [id number] Bilateral CC and MLO view(s) were taken. Technologist: RT Krystyna Prior study comparison: July 07, 2020, diagnostic bilateral mammo performed at [facility]. FINDINGS: There are scattered fibroglandular densities. Screening. Digital screening (2D) mammography was performed bilaterally in the CC and MLO projections. Additionally, breast tomosynthesis (3D mammography) was performed bilaterally in the CC and MLO projections. Todays exam was compared to the prior exam/exams. By history, the patient has no complaints of a palpable breast abnormality or other significant breast complaints. The breasts are unchanged in size and shape. There are no miriam-soft tissue densities or spiculated masses. There is no internal architectural distortion. There are no suspicious miriam-calcific clusters. Skin thickening or nipple retraction is not present. The Volpara volumetric breast density category is B, there are scattered areas of fibroglandular densities. IMPRESSION: BI-RADS Category 2- Benign Findings. There is no evidence of malignant alteration of the breasts. Followup examination recommended in one year. This mammogram was read with the assistance of [employer],an FDA approved computer aided detection system for mammography. The lifetime Tyrer-Cuzick score is 10.2 % Negative x-ray reports should not delay surgical consultation if a dominant or clinically suspicious mass is present. Not all breast cancers can be identified by mammography. Therefore, we recommend that you continue to perform regular breast self-examination and physical examination and then promptly contact your physician of any concerns or changes. Adenosis and dense breasts may obscure an underlying neoplasm. No significant changes when compared with prior studies. Assessment: BI-RADS/ACR category 2 mammogram. Benign Findings. Recommendation Routine screening mammogram of both breasts in 1 year. Electronically Signed By: Ramob Beckman MD 08/02/21 [id number]
== END ==
LOC: M WHC 14:12
PROVIDERS: ATTEND Family Medicine Addiction Medicine
DX: Z12.31 Encounter for screening mammogram for malignant neoplasm of breast (principal)

== ENCOUNTER → 2021-09-02 | Outpatient (CLI) | payer OTHER ==
--- NOTE | 2021-09-04 08:22 | REP ---
INDICATION: POLYMYALGIA RHEUMATICA COMPARISON: None. TECHNIQUE: AP and oblique views of the bilateral sacroiliac joints. FINDINGS: Sacroiliac joints are intact, symmetric, and essentially age-appropriate. No overt degenerative changes are appreciated. The surrounding osseous structures are intact and normal. IMPRESSION: Normal bilateral sacroiliac series. <Electronically signed by Ferny Black > 09/04/21 [id number]
--- NOTE | 2021-09-04 08:23 | REP ---
INDICATION: POLYMYALGIA RHEUMATICA COMPARISON: None. TECHNIQUE: AP, lateral, bilateral oblique views right and left hand. FINDINGS: The osseous structures and joint spaces are symmetric, intact and essentially age-appropriate/normal. There is no evidence for acute fracture or dislocation. Surrounding soft tissues are unremarkable. No subcutaneous emphysema or radiodense foreign body. No significant osteoarthritic or inflammatory arthritic changes are appreciated. IMPRESSION: Normal age-appropriate bilateral hand radiograph series. <Electronically signed by Ferny Black > 09/04/21 [id number]
--- NOTE | 2021-09-04 08:25 | REP ---
INDICATION: POLYMYALGIA RHEUMATICA COMPARISON: None. TECHNIQUE: AP, lateral, bilateral oblique views right and left foot. FINDINGS: The osseous structures and joint spaces are essentially symmetric, intact and age-appropriate/normal. There is no evidence for acute fracture or dislocation. Surrounding soft tissues are unremarkable. No subcutaneous emphysema or radiodense foreign body. No overt significant osteoarthritic or inflammatory arthritic changes are appreciated. Evidence for prior left ankle fracture/fixation. IMPRESSION: Essentially symmetric age-appropriate examination to the right and left foot. <Electronically signed by Ferny Black > 09/04/21 [id number]
== END ==
LOC: M RAD 16:03
PROVIDERS: ATTEND Internal Medicine Rheumatology
DX: M35.3 Polymyalgia rheumatica (principal)

== ENCOUNTER → 2021-12-22 | Outpatient (CLI) | payer OTHER | LOC: M RAD 07:46 | PROVIDERS: ATTEND Internal Medicine Rheumatology | DX: Z15.89 Genetic susceptibility to other disease (principal) ==

== ENCOUNTER → 2022-03-08 | Outpatient (REF) | payer OTHER ==
[2022-03-08 17:01] LABS: BASO # 0.1 10^3/uL (0.0-0.2); BASO % 0.9 % (0.0-1.0); EOS # 0.3 10^3/uL (0.0-0.5); EOS % 3.9 % (0.0-3.0); HEMATOCRIT 39.2 % (36.0-47.0); HEMOGLOBIN 12.3 g/dl (12.0-15.5); LYMPH # 3.3 10^3/uL (1.5-5.0); LYMPH % 38.9 % (24.0-44.0); MEAN CORPUSCULAR HEMOGLOBIN 25.2 pg (27.0-33.0); MEAN CORPUSCULAR HGB CONC 31.4 g/dl (32.0-36.5); MEAN CORPUSCULAR VOLUME 80.3 fl (80.0-96.0); MONO # 0.8 10^3/uL (0.0-0.8); MONO % 8.8 % (2.0-8.0); NEUTROPHILS % 46.6 % (36.0-66.0); PLATELET COUNT, AUTOMATED 423 10^3/uL (150-450); RED BLOOD COUNT 4.88 10^6/uL (4.00-5.40); WHITE BLOOD COUNT 8.5 10^3/uL (4.0-10.0)
[2022-03-08 17:27] LABS: ALBUMIN 3.8 GM/DL (3.2-5.2); ALT/SGPT 24 U/L (12-78); BILIRUBIN,TOTAL 0.3 MG/DL (0.2-1.0); BLOOD UREA NITROGEN 8 MG/DL (7-18); C REACTIVE PROTEIN QUANTITATIV 1.09 MG/DL (0.00-0.30); CALCIUM LEVEL 9.5 MG/DL (8.5-10.1); CARBON DIOXIDE LEVEL 27 MEQ/L (21-32); CHLORIDE LEVEL 104 MEQ/L (98-107); CREATININE FOR GFR 0.94 MG/DL (0.55-1.30); GLOMERULAR FILTRATION RATE > 60.0 (>58); GLUCOSE, FASTING 94 MG/DL (70-100); POTASSIUM SERUM 3.8 MEQ/L (3.5-5.1); SODIUM LEVEL 138 MEQ/L (136-145); TOTAL PROTEIN 7.6 GM/DL (6.4-8.2)
[2022-03-08 17:46] LABS: HEPATITIS B SURFACE ANTIGEN NEGATIVE (NEGATIVE)
[2022-03-08 18:15] LABS: HEPATITIS C VIRUS ABY INDEX 0.1 INDEX (<0.8)
[2022-03-08 18:38] LABS: ERYTHROCYTE SEDIMENTATION RATE 33 mm/hr (0-20)
== END ==
LOC: M SFHCRHEU 10:33
PROVIDERS: ATTEND Internal Medicine Rheumatology
DX: M19.90 Unspecified osteoarthritis, unspecified site (principal); M35.3 Polymyalgia rheumatica; R60.9 Edema, unspecified; Z15.89 Genetic susceptibility to other disease; R76.8 Other specified abnormal immunological findings in serum

== ENCOUNTER → 2022-03-28 | Outpatient (REF) | payer OTHER ==
[2022-03-28 13:48] LABS: BASO # 0.1 10^3/uL (0.0-0.2); BASO % 0.7 % (0.0-1.0); EOS # 0.3 10^3/uL (0.0-0.5); EOS % 4.6 % (0.0-3.0); HEMATOCRIT 36.8 % (36.0-47.0); HEMOGLOBIN 11.7 g/dl (12.0-15.5); LYMPH % 44.8 % (24.0-44.0); MEAN CORPUSCULAR HEMOGLOBIN 25.9 pg (27.0-33.0); MEAN CORPUSCULAR HGB CONC 31.8 g/dl (32.0-36.5); MEAN CORPUSCULAR VOLUME 81.4 fl (80.0-96.0); MONO # 0.6 10^3/uL (0.0-0.8); MONO % 9.5 % (2.0-8.0); NEUTROPHILS # 2.7 10^3/uL (1.5-8.5); NEUTROPHILS % 40.3 % (36.0-66.0); PLATELET COUNT, AUTOMATED 294 10^3/uL (150-450); RED BLOOD COUNT 4.52 10^6/uL (4.00-5.40); WHITE BLOOD COUNT 6.7 10^3/uL (4.0-10.0)
[2022-03-28 14:10] LABS: CALCIUM LEVEL 9.1 MG/DL (8.5-10.1); CREATININE FOR GFR 1.08 MG/DL (0.55-1.30); GLOMERULAR FILTRATION RATE 59.5 (>58); POTASSIUM SERUM 3.9 MEQ/L (3.5-5.1)
[2022-03-28 14:11] LABS: ALBUMIN 3.4 GM/DL (3.2-5.2); BILIRUBIN,TOTAL 0.2 MG/DL (0.2-1.0); C REACTIVE PROTEIN QUANTITATIV 0.46 MG/DL (0.00-0.30); TOTAL PROTEIN 7.2 GM/DL (6.4-8.2)
[2022-03-28 14:30] LABS: ERYTHROCYTE SEDIMENTATION RATE 35 mm/hr (0-20)
== END ==
LOC: M SFHCRHEU 11:09
PROVIDERS: ATTEND Internal Medicine Rheumatology
DX: M19.90 Unspecified osteoarthritis, unspecified site (principal); Z15.89 Genetic susceptibility to other disease

== ENCOUNTER → 2022-06-19 | Outpatient (REF) | payer OTHER ==
[2022-06-19 12:22] LABS: BASO # 0.1 10^3/uL (0.0-0.2); BASO % 0.9 % (0.0-1.0); EOS # 0.2 10^3/uL (0.0-0.5); EOS % 3.1 % (0.0-3.0); LYMPH # 3.1 10^3/uL (1.5-5.0); LYMPH % 39.8 % (24.0-44.0); MEAN CORPUSCULAR HEMOGLOBIN 25.6 pg (27.0-33.0); MEAN CORPUSCULAR HGB CONC 31.4 g/dl (32.0-36.5); MEAN CORPUSCULAR VOLUME 81.6 fl (80.0-96.0); MONO # 0.8 10^3/uL (0.0-0.8); MONO % 10.2 % (2.0-8.0); NEUTROPHILS # 3.5 10^3/uL (1.5-8.5); NEUTROPHILS % 45.7 % (36.0-66.0); PLATELET COUNT, AUTOMATED 348 10^3/uL (150-450); RED BLOOD COUNT 4.29 10^6/uL (4.00-5.40); WHITE BLOOD COUNT 7.7 10^3/uL (4.0-10.0)
[2022-06-19 14:21] LABS: ALBUMIN 3.4 GM/DL (3.2-5.2); ALT/SGPT 24 U/L (12-78); BILIRUBIN,TOTAL 0.2 MG/DL (0.2-1.0); BLOOD UREA NITROGEN 8 MG/DL (7-18); C REACTIVE PROTEIN QUANTITATIV 0.75 MG/DL (0.00-0.30); CALCIUM LEVEL 8.7 MG/DL (8.5-10.1); CARBON DIOXIDE LEVEL 24 MEQ/L (21-32); CHLORIDE LEVEL 104 MEQ/L (98-107); GLOMERULAR FILTRATION RATE > 60.0 (>58); GLUCOSE, FASTING 110 MG/DL (70-100); POTASSIUM SERUM 3.9 MEQ/L (3.5-5.1); SODIUM LEVEL 138 MEQ/L (136-145); TOTAL PROTEIN 6.9 GM/DL (6.4-8.2)
[2022-06-19 14:37] LABS: ERYTHROCYTE SEDIMENTATION RATE 41 mm/hr (0-20)
== END ==
LOC: M SFHCRHEU 11:05
PROVIDERS: ATTEND Internal Medicine Rheumatology
DX: M19.90 Unspecified osteoarthritis, unspecified site (principal); Z15.89 Genetic susceptibility to other disease; R60.9 Edema, unspecified; R76.8 Other specified abnormal immunological findings in serum